=== PATIENT | female | born 1940 | race Caucasian/White ===

== ENCOUNTER → 2017-12-30 | Outpatient (CLI) | payer MEDICARE ==
[~2017-12-30] MED LIST: ASPIRIN81 M1 PO; B-121000 MCG PO; BIOTIN1000 MCG PO; GLIPIZIDE XL10 MG PO; KLOR-CON 1010 MEQ PO; LIPITOR10 MG PO; MECLIZINE HCL25 M1 PO; METAMUCIL1 WAF PO; METFORMIN ER500 MG PO; PRILOSEC10 MG PO; TENORETIC-25/501 TAB PO; ZETIA10 MG PO; [UNRECOGNIZED DRUG - OTHER] TP
== END | disposition home or self-care (01) ==
LOC: RAD 13:44
DX: M47.896 Other spondylosis, lumbar region (principal); M47.897 Other spondylosis, lumbosacral region

== ENCOUNTER 2018-09-17 17:44 | Emergency (ER) | payer MEDICARE ==
[2018-09-17 17:45] VITALS: BP 179/65
== END 2018-09-17 20:17 | disposition home or self-care (01) ==
LOC: ED 17:44
DX: S00.83XA Contusion of other part of head, initial encounter (principal); S00.31XA Abrasion of nose, initial encounter; S49.92XA Unspecified injury of left shoulder and upper arm, initial encounter; Z88.0 Allergy status to penicillin; Z91.048 Other nonmedicinal substance allergy status; Z88.1 Allergy status to other antibiotic agents; Z88.8 Allergy status to other drugs, medicaments and biological substances; Z79.84 Long term (current) use of oral hypoglycemic drugs; Z79.899 Other long term (current) drug therapy; Z90.710 Acquired absence of both cervix and uterus; Z90.49 Acquired absence of other specified parts of digestive tract; W18.09XA Striking against other object with subsequent fall, initial encounter; Y93.89 Activity, other specified; Y92.89 Other specified places as the place of occurrence of the external cause; Y99.8 Other external cause status

== ENCOUNTER → 2022-05-13 | Outpatient (CLI) | payer MEDICARE | END | disposition home or self-care (01) | LOC: CT 13:49 | PROVIDERS: ATTEND Specialist | DX: J32.1 Chronic frontal sinusitis (principal); J34.2 Deviated nasal septum ==